=== PATIENT | female | born 1980 | race Caucasian/White ===

== ENCOUNTER 2019-06-25 07:41 | Emergency (ER) | payer OTHER, SELFPAY ==
[2019-06-25 07:49] LABS: Glucose Point of Care 92 (65-105)
[2019-06-25 07:53] VITALS: BP 149/81; PULSE 80; RESP 16; TEMP 37.3; O2SAT 100
[2019-06-25] MEDS: LACTATED RINGERS 1,000 ML 999 ML IV CONT (08:06)
--- NOTE | 2019-06-25 08:15 | PC.NURSE ---
RN bedside at this time to help Tejal Oleary collect blood sample. Informed pt that ERP has ordered Flu swab, at this moment pt directly up in the bed and states no, I do not need a flu swab, you are not flu swabbing me. I also informed pt and mother that ERP has ordered CT and Urine sample. Pt again refusing, crying to mother, stating that I am being hateful and mean, when I asked what I had done to upset them, family cannot state an answer and mother states that she cannot answer because her sugar is low, she is in a diabetic stupor. RN again informed that pt glucose checked at 92 and the normal is 80-100. Pt sits up in bed, puts finger in my face and states that I was low for 2 hours and my brain is not working right because of it, don't you know that diabetes messes with your mind. RN again informed that I was not meaning to be mean. Pt yelling consistently at her mother about calling her clients. I informed pt that I understand that she wants to refuse the CT and flu swab but in order to do that she needs to be alert and oriented, pt again sits up clearly states where she is, the full date, and her full name and , all answers correct. Pt then slumps back into bed and begins garbeling to her mother again. sorter lumber straightener Jaquelin aware of situation.
[2019-06-25 08:23] LABS: Basophils Absolute Auto 0.1 K/mm3 (0.0-0.1); Basophils Percent Auto 0.7 % (0.2-1.2); Eosinophils Percent Auto 0.2 % (0-4.4); Hematocrit 42.6 % (37.0-47.0); Hemoglobin 14.5 g/dL (12.0-15.0); Immature Granulocyte Absolute 0.08 K/mm3 (0.00-0.031); Immature Granulocyte Percent A 0.6 % (0-0.5); Lymphocytes Absolute Auto 1.65 K/mm3 (0.9-3.2); Lymphocytes Percent Auto 11.7 % (18.3-44.2); Mean Corpuscular Hemoglobin 29.5 pg (26-34); Mean Corpuscular Volume 86.8 fl (80-100); Mean Platelet Volume 9.5 fl (7.4-10.4); Monocytes Absolute Auto 0.5 K/mm3 (0.1-0.6); Monocytes Percent Auto 3.4 % (2.6-8.5); Neutrophils Absolute Auto 11.8 K/mm3 (1.3-6.7); Neutrophils Percent Auto 83.4 % (45.5-73.1); Platelet Count Result 295 k/mm3 (150-375); Red Blood Count 4.91 M/mm3 (4.2-5.4); Red Cell Distribution Width 12.4 % (11.5-14.5); White Blood Count 14.1 K/mm3 (4.5-10.0)
--- NOTE | 2019-06-25 08:25 | PC.NURSE ---
After pt states she refuses, I asked pt if she would like the ERP to come and explain why he placed orders, pt and mother agree to speak with him, ERP Nic aware, states that he will be in room shortly.
[2019-06-25 08:32] LABS: INR 0.9; Prothrombin Time 11.9 Seconds (11.1-14.7)
[2019-06-25 08:33] LABS: Partial Thromboplastin Time 25.9 SECONDS (22.3-36.8)
[2019-06-25 08:34] LABS: Lactic Acid Reflex 2.4 mmol/L (0.7-2.1)
[2019-06-25 08:35] LABS: Alanine Aminotransferase 18 U/L (4-35); Albumin Level 4.1 g/dL (3.5-5.1); Alkaline Phosphatase 69 U/L (38-126); Aspartate Amino Transferase 26 U/L (14-36); Bilirubin,Total 0.3 mg/dL (0.2-1.3); Blood Urea Nitrogen 13 mg/dL (7-17); Carbon Dioxide 21 mmol/L (22-30); Chloride 100 mmol/L (98-107); Estimated CRCL calculation 85 ml/min; Estimated Glomerular Filt Rate > 60; Glucose 122 mg/dL (65-105); Sodium 135 mmol/L (137-145)
[2019-06-25 08:39] LABS: Add Urine Microscopic? YES; Appearance Urine Clear (Clear); Bilirubin Urine Negative (Negative); Blood Urine Negative (Negative); Color Urine Yellow (Yellow); Glucose Urine UA 1+ mg/dL (Negative); Ketones Urine Trace mg/dL (Negative); Leukocyte Esterase Ur Negative LEU/UL (Negative); Mucus Urine Rare /lpf; Nitrate Urine Negative (Negative); Protein Urine 1+ mg/dL (Negative); Specific Grav Ur 1.016 (1.001-1.035); Squamous Epithelial Cell Urine Many /hpf (Few); Urobilinogen Urine Negative mg/dL (<2.0); WBC Urine 0-3 /hpf
--- NOTE | 2019-06-25 08:46 | PC.NURSE ---
ERP Nic has spoken with pt at this time, I provided apple sauce and sprite for snack at this time per request of ERP. ERP states that he would like the CT and Flu swab cancelled at this time.
[2019-06-25 08:52] LABS: Amphetamine Screen Urine Negative (Negative); Barbiturate Screen Urine Negative (Negative); Benzodiazepines Screen Urine Negative (Negative); Cannabinoid Screen Urine Negative (Negative); Cocaine Screen Urine Negative (Negative); Methadone Screen Urine Negative (Negative); Opiate Screen Urine Negative (Negative); Phencyclidine Screen Urine Negative (Negative)
--- NOTE | 2019-06-25 08:53 | PC.NURSE ---
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 Pt wanting to leave and go to , I informed pt that she cannot leave the ED with an IV in place, I informed that I would go and get pt mother and bring her back but if she wants to leave she will have to let me remove the IV, and if she wants to leave she will have to sign an AMA form. Pt agrees to let me go get mother. Pt. mother found in WR and returned to pt room.
--- NOTE | 2019-06-25 08:59 | PC.NURSE ---
Pt provided breakfast tray, aggessively stating that she will not eat it because her sugar is too high. I informed pt that her lab glucose was 122, and that the ERP wound like her to eat something to maintain her sugar. 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 Pt can be heard yelling at her mother with door closed. ERP gee informed that pt wants to leave AMA, states that he will arrive at the bedside shortly.
--- NOTE | 2019-06-25 09:05 | ED.GENADULT ---
HPI - General Adult General Chief complaint: Unspecified Stated complaint: low blood sugar Time Seen by Provider: 06/25/19 07:46 Source: RN notes reviewed History of Present Illness HPI narrative: Patient presents emergency department from home for hypoglycemia. History is for the patient as well as the patient's mother is present. They state the family tried to wake of the patient's morning and she was not acting like herself. They states they checked her blood sugar and it was low at that time. Patient was last known normal last night. Patient does have a history of diabetes and has an insulin pump. Patient currently is awake and alert but only answers partial questions is able to tell me her name and knows she is at the hospital. She denies any any recent illness. The patient is very tearful and hyperventilating in the room Related Data Allergies Allergy/AdvReac Type Severity Reaction Status Date / Time No Known Allergies Allergy Verified 07/04/18 16:13 Review of Systems Review of Systems: Narrative: Gen.: Denies fevers or chills Eyes: Denies eye pain or visual change ENT: Denies congestion Respiratory: Denies shortness of breath or cough CV: Denies chest pain or palpitations GI: Denies abdominal pain nausea, emesis or diarrhea denies burning, urgency, frequency or hematuria Musculoskeletal: Neuro: Denies numbness, tingling, weakness or focal weakness Skin: Denies rash Endocrine: Diabetes Except as documented, all other systems reviewed and negative [facility] Past Medical History Medical History (Updated 06/25/19 @ 09:10 by Bashir Lucero DO) Diabetes mellitus Family History Family History (Updated 12/04/17 @ 08:17 by DOCTOR UNKNOWN) Father Family history of heart disease in male family member before age 55 Patient's father is , Onset Age: 50 Acute myocardial infarction Mother Hypertension Social History Social History Smoking status: Current every day smoker Smoking end date: 05/15/14 Alcohol intake: current Gender identity (if verbalized by the patient): Female Exam Narrative: Exam Narrative: APPEARANCE: Tearful in bed, sitting upright hyperventilating EYES: EOMI HEENT: Normocephalic, atraumatic, OMM RESPIRATORY: No respiratory distress Clear to auscultation bilaterally with no rhonchi wheezing or rales. CARDIOVASCULAR: Regular rate and rhythm without murmurs rubs or gallops. ABDOMINAL: Soft, nontender, nondistended, no rebound or guarding MUSCULOSKELETAl: Moves all extremities. No clubbing, cyanosis or edema. NEURO: Awake and alert x 2. Following commands, speech normal, no focal deficits SKIN:: Warm, dry. No rashes lesions or abrasions PSYCHIATRIC: Tearful and anxious Course Course Emergency Course: Patient is now more awake and alert. States that her blood sugar was 54 at home when it was checked earlier. States that it x1 is been low and has taken her a while for her to fully wake up. Patient states that she is fine at this time she is eating and drinking in the room. She is awake and alert x3 and answering all questions appropriately Patient remains awake and alert x3. She is very anxious to leave. 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 She states she must sign into her square and states that she has to leave so that she can use the square for charges today. Again discussed with the patient and she is awake and alert x3 she is answering all questions appropriately she is able to get up and ambulate in the emergency department with no difficulty. I discussed with the patient the risks of leaving his medical advice including the fact that she needs to be continued to be monitored for her blood sugars and she continues to wish to refuse any further treatment at this time. We discussed the risks of permanent disability cardiopulmonary arrest and and the patien
[2019-06-25 09:11] VITALS: PULSE 78; RESP 22; O2SAT 100
[2019-06-25 11:20] LABS: Reflex Lactic Acid Yes or No Add Lactic
== END 2019-06-25 09:10 | disposition left against medical advice (07) ==
PROVIDERS: Emergency Provider Emergency Medicine; PCP Internal Medicine
DX: E11.649 Type 2 diabetes mellitus with hypoglycemia without coma (principal); Z96.41 Presence of insulin pump (external) (internal); Z79.4 Long term (current) use of insulin; F17.210 Nicotine dependence, cigarettes, uncomplicated
CPT/HCPCS: 36415; 80053; 80307; 81001; 81025; 82948; 83605; 85025; 85610; 85730; 87040; 99283; J7120

== ENCOUNTER 2019-11-30 04:13 | Emergency (ER) | payer OTHER, SELFPAY ==
[2019-11-30 04:16] VITALS: BP 117/72; PULSE 107; RESP 16; TEMP 36.5; O2SAT 96
--- NOTE | 2019-11-30 04:36 | ED.RECABL ---
HPI - Recheck/Abnormal Lab/Rx General Chief Complaint: Recheck/Abnormal Lab/Rx Stated Complaint: possible dka Time Seen by Provider: 11/30/19 04:36 History of Present Illness HPI narrative: 39 yo female w/ h/o DM type I presents c/o possible DKA. She reports that she was suffering from a UTI. Just started on bactrim yesterday. Now concerned that she may be in DKA because she is having difficulty controlling her blood sugar. She has also had lower abdominal pain, nausea and vomiting. no fever. Related Data Home Medications Medication Instructions Recorded Confirmed insulin lispro [Humalog U-100 200 unit 11/30/19 Insulin] phenazopyridine PO TID 11/30/19 sulfamethoxazole-trimethoprim PO BID 11/30/19 Allergies Allergy/AdvReac Type Severity Reaction Status Date / Time No Known Allergies Allergy Verified 11/30/19 06:31 Review of Systems Review of Systems: All systems reviewed & are unremarkable except as noted in HPI and below Constitutional: Constitutional: Denies fever(s) Cardiovascular: Cardiovascular: Denies chest pain Respiratory: Respiratory: Denies dyspnea Gastrointestinal: Gastrointestinal: Reports abdominal pain, Reports nausea and Reports vomiting Genitourinary: Genitourinary: Reports dysuria Musculoskeletal: Musculoskeletal: Denies back pain Neurologic: Denies weakness Endocrine: Endocrine: Reports polyuria PMFSH Past Medical History Medical History Diabetes mellitus Family History Family History Father Family history of heart disease in male family member before age 55 Patient's father is , Onset Age: 50 Acute myocardial infarction Mother Hypertension Social History Social History Smoking status: Current every day smoker Smoking end date: 05/15/14 Alcohol intake: current Gender identity (if verbalized by the patient): Female Exam Const: General: healthy appearing, no acute distress and alert Orientation/consciousness: patient oriented x3 HENMT: Head: normal to inspection Neck: Neck: normal visual inspection and no lymphadenopathy Chest: Chest palpation & inspection: no tenderness Resp: Effort & Inspection: normal respiratory effort Auscultation: clear to auscultation bilaterally, no rales, no rhonchi and no wheezes Cardio: Jugular venous distension: no JVD Rate: regular rate Rhythm: regular rhythm Heart sounds: no murmurs GI: Inspection: non-distended GI Palp: Yes Soft to palpation and No Tenderness to palpation present (GI) Skin: General skin exam: normal color Neuro: General: patient oriented x3 and moves all extremities Speech: normal speech Extrem: General: no edema Psych: Appearance: well kempt Affect: normal affect Course Vital Signs Vital signs: Vital Signs Temperature 36.5 C 11/30/19 04:16 Pulse Rate 107 H 11/30/19 04:16 Respiratory Rate 16 11/30/19 04:16 Blood Pressure 117/72 11/30/19 04:16 Pulse Oximetry 96 11/30/19 04:16 Temperature 36.5 C 11/30/19 04:16 Pulse Rate 88 11/30/19 06:53 Respiratory Rate 19 11/30/19 06:53 Blood Pressure 107/68 11/30/19 06:53 Pulse Oximetry 97 11/30/19 06:53 MDM - Recheck/Abnormal Lab/Rx MDM Narrative Medical decision making narrative: Glucose only mildly elevated. No significnat increase in anion gap. Mild increase in creatinine. Mild elevation in WBCs. UA consistent with infection. Will continue antibiotics and send for culture. Feeling better after fluids. Medical Records Attestation: I reviewed the patient's medical records. Lab Data Attestation: I reviewed the patient's lab results. Result diagrams: 11/30/19 04:37 11/30/19 04:37 Labs: Lab Results 11/30/19 11/30/19 11/30/19 Range/Units 04:33 04:37 04:37 WBC 13.1 H (4.5-10.0) K/mm3 RB
[2019-11-30 04:40] LABS: Glucose Point of Care 167 (65-105)
[2019-11-30 04:43] LABS: Basophils Absolute Auto 0.1 K/mm3 (0.0-0.1); Basophils Percent Auto 0.6 % (0.2-1.2); Eosinophils Percent Auto 0.2 % (0-4.4); Hematocrit 36.3 % (37.0-47.0); Hemoglobin 12.7 g/dL (12.0-15.0); Immature Granulocyte Absolute 0.08 K/mm3 (0.00-0.031); Immature Granulocyte Percent A 0.6 % (0-0.5); Lymphocytes Absolute Auto 1.17 K/mm3 (0.9-3.2); Lymphocytes Percent Auto 8.9 % (18.3-44.2); Mean Corpuscular Hemoglobin 30.5 pg (26-34); Mean Corpuscular Volume 87.3 fl (80-100); Mean Platelet Volume 9.4 fl (7.4-10.4); Monocytes Absolute Auto 1.2 K/mm3 (0.1-0.6); Monocytes Percent Auto 9.2 % (2.6-8.5); Neutrophils Absolute Auto 10.5 K/mm3 (1.3-6.7); Neutrophils Percent Auto 80.5 % (45.5-73.1); Platelet Count Result 184 k/mm3 (150-375); Red Blood Count 4.16 M/mm3 (4.2-5.4); Red Cell Distribution Width 12.1 % (11.5-14.5); White Blood Count 13.1 K/mm3 (4.5-10.0)
[2019-11-30 04:55] LABS: Alanine Aminotransferase 25 U/L (4-35); Albumin Level 3.7 g/dL (3.5-5.1); Alkaline Phosphatase 77 U/L (38-126); Aspartate Amino Transferase 33 U/L (14-36); Bilirubin,Total 0.6 mg/dL (0.2-1.3); Blood Urea Nitrogen 15 mg/dL (7-17); Calcium 8.6 mg/dL (8.4-10.2); Carbon Dioxide 22 mmol/L (22-30); Chloride 100 mmol/L (98-107); Estimated Glomerular Filt Rate 51; Glucose 170 mg/dL (65-105); Magnesium 1.7 mg/dL (1.6-2.3); Phosphorus 2.7 mg/dL (2.5-4.5); Potassium 3.7 mmol/L (3.4-5.0); Sodium 132 mmol/L (137-145)
[2019-11-30 04:59] LABS: Beta-Hydroxybutyrate/Acetoacetate 0.95 mmol/L (0.02-0.27)
[2019-11-30] MEDS: ONDANSETRON INJ 4 MG/2 ML VIAL IV PUSH (05:03)
[2019-11-30] MEDS: SODIUM CHLORIDE 0.9% IV 1,000 ML 999 ML IV CONT ×2 (05:03→06:01)
[2019-11-30 05:06] VITALS: BP 114/60; PULSE 85; RESP 15; O2SAT 94
[2019-11-30 05:22] LABS: Add Urine Microscopic? YES; Appearance Urine Clear (Clear); Bilirubin Urine Negative (Negative); Color Urine Amber (Yellow); Glucose Urine UA 1+ mg/dL (Negative); Ketones Urine 1+ mg/dL (Negative); Leukocyte Esterase Ur Negative LEU/UL (Negative); Mucus Urine Rare /lpf; Nitrate Urine Positive (Negative); Protein Urine 2+ mg/dL (Negative); Specific Grav Ur 1.023 (1.001-1.035); Squamous Epithelial Cell Urine Many /hpf (Few)
[2019-11-30 05:26] LABS: Blood Urine Negative (Negative)
[2019-11-30 06:00] VITALS: BP 116/68; PULSE 87; RESP 18; O2SAT 98
[2019-11-30] MEDS: CEFDINIR 300 MG CAPSULE PO (06:41)
[2019-11-30 06:53] VITALS: BP 107/68; PULSE 88; RESP 19; O2SAT 97
== END 2019-11-30 06:55 | disposition home or self-care (01) ==
PROVIDERS: Emergency Provider Emergency Medicine; PCP Internal Medicine
DX: N39.0 Urinary tract infection, site not specified (principal); E10.9 Type 1 diabetes mellitus without complications; Z79.4 Long term (current) use of insulin; F17.200 Nicotine dependence, unspecified, uncomplicated
CPT/HCPCS: 36415; 80053; 81001; 81025; 82010; 82948; 83735; 84100; 85025; 87086; 87088; 96361; 96374; 99284; A9270; J2405; J7030

== ENCOUNTER 2023-08-19 04:02 | Emergency (ER) | payer OTHER, SELFPAY ==
[2023-08-19 04:08] LABS: Glucose Point of Care 238 mg/dl (65-105)
[2023-08-19 04:09] VITALS: BP 125/76; PULSE 95; RESP 14; TEMP 36.8; O2SAT 100
[2023-08-19 05:11] LABS: Glucose Point of Care 44 mg/dl (65-105)
[2023-08-19] MEDS: DEXTROSE 50% 25 GM/50 ML SYRINGE IV PUSH ×2 (05:21→05:58)
--- NOTE | 2023-08-19 05:26 | PC.NURSE ---
Pt's glucose rechecked and found to be 44. Dr Gramajo notified and orders for 1 amp dextrose given. Pt reluctant to let this RN start IV stating that she wants a quick solution because she has to be at work at 0800. Attempted to explain to pt that this was the correct medical solution to her situation. Dr Gramajo notified and to bedside. Oral glucose given per verbal order. After speaking with ERP, pt willing to have IV and dextrose.
--- NOTE | 2023-08-19 05:35 | ED.GENADULT ---
HPI - General Adult General Chief complaint: Recheck/Abnormal Lab/Rx Stated complaint: LOW BLOOD SUGAR, 26 UNITS OF FAST ACTING INSULIN Time Seen by Provider: 08/19/23 05:19 History of Present Illness HPI narrative: Patient is a 43-year-old female who presents to the emergency department this morning due to concern for hypoglycemia. Patient accidentally took 26 units of her fast acting insulin instead of her short-acting. Patient is currently denying any and wants an oral glucose and requesting to be discharged. Related Data Home Medications Medication Instructions Recorded Confirmed insulin lispro 100 unit/mL 200 unit 11/30/19 subcutaneous solution (Humalog U-100 Insulin) phenazopyridine 100 mg tablet PO TID 11/30/19 sulfamethoxazole 800 PO BID 11/30/19 mg-trimethoprim 160 mg tablet Allergies Allergy/AdvReac Type Severity Reaction Status Date / Time No Known Allergies Allergy Verified 11/30/19 06:31 Review of Systems Review of Systems: All systems are reviewed and are negative unless stated otherwise in the HPI. [facility] Past Medical History Medical History (Updated 08/19/23 @ 06:21 by Lizett Gramajo MD) Diabetes mellitus Family History Family History Father Family history of heart disease in male family member before age 55 Patient's father is , Onset Age: 50 Acute myocardial infarction Mother Hypertension Social History Social History Smoking status: Current every day smoker Smoking end date: 05/15/14 Alcohol intake: current Gender identity (if verbalized by the patient): Female Exam Narrative: General: Alert, awake, afebrile, in no acute distress. HEENT: PERRL, no rhinorrhea, no post nasal drip, oropharynx clear. Neck: Trachea midline, no JVD, no lymphadenopathy. Cardiovascular: Regular rate and rhythm, no murmurs, rubs or gallops, no peripheral edema. Respiratory: Clear to auscultation bilaterally, no tachypnea, no wheezing, no rhonchi, no rubs, no respiratory distress. Abdomen: Soft, nontender, nondistended, no rebound, no guarding, no peritoneal signs. Musculoskeletal: No joint swelling or deformity, normal muscle tone. Skin: No rashes or petechia, no signs of infection. Psychiatric: Alert and oriented, normal behavior and judgment for situation. Neurological: Alert and oriented to person, place, and time. Follows all commands. No focal deficits, speech is clear and fluent. Course Vital Signs Vital signs: Vital Signs Temperature 98.2 F 08/19/23 04:09 Pulse Rate 95 08/19/23 04:09 Respiratory Rate 14 08/19/23 04:09 Blood Pressure 125/76 08/19/23 04:09 Pulse Oximetry 100 08/19/23 04:09 Temperature 98.2 F 08/19/23 04:09 Pulse Rate 95 08/19/23 04:09 Respiratory Rate 14 08/19/23 04:09 Blood Pressure 125/76 08/19/23 04:09 Pulse Oximetry 100 08/19/23 04:09 Medical Decision Making MDM Narrative Medical decision making narrative: The patient was evaluated by myself in the emergency department. History is obtained from patient who is an independent historian and physical exam was performed. External medical records were reviewed at this time. Initial blood glucose check was 238 and on the next glucose check, patient's blood sugar did drop to 44. Patient refused IV and just wanted oral glucose and she was administered oral glucose gel initially, however, after reading the label on the back, patient realized that that is not enough glucose and agreed to an IV. Patient was administered an amp of dextrose and per her glucose monitor, shortly after the amp of dextrose patient states that her glucose was reading at 173. On repeat assessment of the patient, repeat glucose check was noted to be 71. At this time, patient is requesting to be discharged against medical advice. Patient is sound mind and capable of m
--- NOTE | 2023-08-19 06:00 | PC.NURSE ---
Pt agreeable to another amp of dextrose, but then asks to leave. Dr Gramajo at bedside discussing risks vs benefits.
[2023-08-19 06:07] LABS: Glucose Point of Care 71 mg/dl (65-105)
== END 2023-08-19 06:15 | disposition left against medical advice (07) ==
PROVIDERS: Emergency Provider Emergency Medicine; PCP Internal Medicine Endocrinology, Diabetes & Metabolism
DX: T38.3X1A Poisoning by insulin and oral hypoglycemic [antidiabetic] drugs, accidental (unintentional), initial encounter (principal); E11.649 Type 2 diabetes mellitus with hypoglycemia without coma; Z87.891 Personal history of nicotine dependence; Z79.4 Long term (current) use of insulin
CPT/HCPCS: 82948; 96374; 96376; 99284; A9270